=== PATIENT | female | born 1965 | race Caucasian/White ===

== ENCOUNTER 2017-03-29 16:26 | Emergency (ER) | payer OTHER ==
[~2017-03-29 16:26] MED LIST: ACET500CAP PO; HORMONE PELLETS IM; NORCO1 TA1 PO; Z-PAK PO
[2017-03-29 17:58] LABS: BASOPHILS 0.5 %; BASOPHILS ABSOLUTE 0.03 10/3/uL (0.0-0.16); EOSINOPHILS 2.7 %; EOSINOPHILS ABSOLUTE 0.15 10/3/uL (0.0-0.53); IMMATURE GRANULOCYTES 0.2 %; IMMATURE GRANULOCYTES ABSOLUTE 0.01 10/3/uL (0.0-0.11); LYMPHOCYTES ABSOLUTE 1.92 10/3/uL (0.67-4.30); MEAN CORPUS HGB CONC 34.1 g/dL (32.0-36.0); MEAN CORPUSCULAR HEMOGLOB 32.3 pg (26.0-34.0); MEAN CORPUSCULAR VOLUME 94.5 fL (80-100); MEAN PLATELET VOLUME 9.3 fL (9.2-13.0); MONOCYTES 9.8 %; MONOCYTES ABSOLUTE 0.55 10/3/uL (0.21-1.20); NEUTROPHILS 52.8 %; NEUTROPHILS ABSOLUTE 2.98 10/3/uL (2.02-8.40); PLATELET COUNT 215 10/3/uL (150-400); RED CELL COUNT 4.34 10/6/uL (4.0-5.6)
[2017-03-29 18:06] LABS: ER CBC TAT 0 Hrs 12 Mins; MANUAL DIFF NO %; WHITE BLOOD CELLS 5.6 10/3/uL (4.5-10.5)
[2017-03-29 18:13] LABS: CALCIUM, SERUM 8.7 MG/DL (8.5-10.4); CHLORIDE, SERUM 107 MMOL/L (96-112); CO2 (CARBON DIOXIDE) 31 MMOL/L (24-34); CREATININE 0.82 MG/DL (0.55-1.02); GFR AFRICAN AMERICAN 95 ML/MIN (>=60); GFR NON AFRICAN AMERICAN 82 ML/MIN (>=60); GLUCOSE, SERUM 88 MG/DL (60-99); POTASSIUM, SERUM 3.6 MMOL/L (3.5-5.3); SODIUM, SERUM 142 MMOL/L (135-148)
[2017-03-29 18:14] LABS: BUN (BLOOD UREA NITROGEN) 7 MG/DL (6-23)
[2017-03-29 18:14] LABS: ASCORBIC ACID (UR NOT ORDER) NEG (NEG); BILIRUBIN, URINE NEGATIVE (NEG); ER URINALYSIS TAT 0 Hrs 12 Mins; KETONE, URINE NEGATIVE (NEG); LEUKOCYTE ESTERASE(NOT OR MOD (NEG); NITRITE (URINE) NEG (NEG); WBC (NOT ORDERED) (RFLEX) 3 (0-5)
== END 2017-03-29 21:34 | disposition home or self-care (01) ==
LOC: ER 16:26
PROVIDERS: Emergency Medicine
DX: R10.9 Unspecified abdominal pain (principal); R10.32 Left lower quadrant pain; R30.0 Dysuria; R11.0 Nausea; Z88.0 Allergy status to penicillin; Z79.899 Other long term (current) drug therapy; Z87.442 Personal history of urinary calculi; Z98.51 Tubal ligation status; Z90.49 Acquired absence of other specified parts of digestive tract
CPT/HCPCS: 74000; 74176; 80048; 81001; 85025; 87086; 96374; 99284; J2405